=== PATIENT | female | born 2000 | race Caucasian/White ===

== ENCOUNTER 2021-06-07 21:47 | Emergency (ER) | payer OTHER, SELFPAY ==
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
[2021-06-07] MEDS: Silver Sulfadiazine 1 % Cream 20 GM TUBE 1 APPL TOPICAL (22:01)
[2021-06-07] MEDS: oxyCODONE HCl Immed Release 5 MG TABLET 10 MG PO (22:01)
[2021-06-07] MEDS: Morphine Sulfate 2 MG/ML CARTRIDGE IM (22:03)
[2021-06-07 22:10] VITALS: BP 142/90; PULSE 82; RESP 18; TEMP 36.7; O2SAT 99; BMI 23.3
== END 2021-06-07 23:07 | disposition home or self-care (01) ==
LOC: HO.ED 22:19
PROVIDERS: Emergency Provider Internal Medicine
DX: T23.202A Burn of second degree of left hand, unspecified site, initial encounter (principal); T31.0 Burns involving less than 10% of body surface; X08.8XXA Exposure to other specified smoke, fire and flames, initial encounter; Y93.9 Activity, unspecified; Y92.9 Unspecified place or not applicable; Y99.9 Unspecified external cause status; Z79.899 Other long term (current) drug therapy
CPT/HCPCS: 96372; 99283; 99284; J2270

== ENCOUNTER 2021-09-10 18:53 | Outpatient (REF) | payer OTHER, SELFPAY ==
[2021-09-10 19:47] LABS: Influenza A PCR NEGATIVE (Negative); Influenza B PCR NEGATIVE (Negative); Resp Syncy Virus RNA Qual PCR NEGATIVE (Negative); SARS COV2 PCR INHOUSE POSITIVE (Negative)
== END 2021-09-10 18:54 | disposition home or self-care (01) ==
LOC: HO.LAB 18:53
PROVIDERS: Emergency Medicine; Visit Provider Internal Medicine
DX: Z20.822 Contact with and (suspected) exposure to COVID-19 (principal); R05.9 Cough, unspecified; R51.9 Headache, unspecified
CPT/HCPCS: 0241U